=== PATIENT | male | born 1960 | race Caucasian/White ===

== ENCOUNTER 2019-11-04 15:23 | Outpatient (CLI) | payer OTHER, MEDICARE, SELFPAY ==
[2019-11-04 15:49] LABS: Basophils Percent Auto 0.1 % (0.2-1.2); Eosinophils Absolute Auto 0.4 K/mm3 (0-0.3); Eosinophils Percent Auto 3.5 % (0-4.4); Hematocrit 29.6 % (42.0-52.0); Immature Granulocyte Absolute 0.06 K/mm3 (0.00-0.031); Immature Granulocyte Percent A 0.6 % (0-0.5); Lymphocytes Absolute Auto 0.91 K/mm3 (0.9-3.2); Lymphocytes Percent Auto 8.9 % (18.3-44.2); Mean Corpuscular HGB Conc 30.4 g/dl (32-36); Mean Corpuscular Volume 105.3 fl (80-100); Mean Platelet Volume 10.8 fl (7.4-10.4); Monocytes Absolute Auto 0.9 K/mm3 (0.1-0.6); Monocytes Percent Auto 8.7 % (2.6-8.5); Neutrophils Percent Auto 78.2 % (45.5-73.1); Platelet Count Result 181 k/mm3 (150-375); Red Blood Count 2.81 M/mm3 (4.6-6.20); Red Cell Distribution Width 14.6 % (11.5-14.5); White Blood Count 10.2 K/mm3 (4.5-10.0)
[2019-11-04 17:43] LABS: Iron 76 ug/dL (49-181)
[2019-11-04 18:08] LABS: Percent Iron Saturation 27 % (20-50)
[2019-11-04 18:24] LABS: Alanine Aminotransferase 19 U/L (4-50); Albumin Level 3.1 g/dL (3.5-5.1); Alkaline Phosphatase 220 U/L (38-126); Anion Gap 14 mmol/L (8-16); Aspartate Amino Transferase 27 U/L (17-59); Bilirubin,Total 0.2 mg/dL (0.2-1.3); Blood Urea Nitrogen 73 mg/dL (9-20); Calcium 8.3 mg/dL (8.4-10.2); Carbon Dioxide 26 mmol/L (22-30); Chloride 99 mmol/L (98-107); Estimated Glomerular Filt Rate 6; Glucose 146 mg/dL (75-110); Lactate Dehydrogenase 533 U/L (313-618); Potassium 5.7 mmol/L (3.4-5.0); Sodium 139 mmol/L (137-145)
[2019-11-06 21:46] LABS: Erythropoietin (EPO) 108.3 mIU/mL (2.6-18.5)
== END 2019-11-04 15:24 | disposition home or self-care (01) ==
PROVIDERS: PCP Internal Medicine Nephrology; Visit Provider Internal Medicine Hematology & Oncology
DX: D64.9 Anemia, unspecified (principal)
CPT/HCPCS: 36415; 80053; 82607; 82668; 82728; 83540; 83550; 83615; 85025

== ENCOUNTER 2019-11-29 18:24 | Emergency (ER) | payer OTHER, MEDICARE, SELFPAY ==
[2019-11-29] VITALS (9 sets, daily range): BP systolic 66–110; BP diastolic 34–53; PULSE 85–96; RESP 18–91; TEMP 37.3; O2SAT 88–100
--- NOTE | ~2019-11-29 | XR_ITS ---
XR chest 1V portable DATE: 11/29/2019 19:07 INDICATION: Medial chest pain. Shortness of breath. Hypertension. TECHNIQUE: Portable AP chest on 11/29/2019 at 1853 hours COMPARISON: 08/10/2013 portable AP chest FINDINGS: Limited portable examination with low lung volumes. Right mid and lower lung infiltrate and/atelectasis and left lower lung infiltrate or atelectasis. No pleural effusion or pulmonary vascular congestion or pneumothorax is evident. Cardiomegaly. Left-sided chest transvenous pacemaker device with leads overlying right atrium and rig ht ventricle. Diffuse osteopenia. IMPRESSION: Bilateral infiltrates and/atelectasis. Cardiomegaly; left-sided dual-lead pacemaker Reviewed, dictated and finalized at location A. IMPRESSION: Bilateral infiltrates and/atelectasis. Cardiomegaly; left-sided yair l-lead pacemaker
--- NOTE | 2019-11-29 18:37 | ECG_ITS ---
Measurements Intervals [place] Rate: 93 P: -72 SD: 96 QRS: -49 QRSD: 224 T: 145 QT: 530 QTc: 660 Interpretive Statements ATRIAL SENSE- ELECTRONIC VENTRICULAR PACEMAKER BASELINE WANDER- I, II, AVR, AVL, AVF, V1-V2, V5 NO FURTHER INTERPRETATION IS POSSIBLE ATYPICAL ECG Electronically Signed On 11-30-2019 8:19:04 CDT by Adal Kate D.O.
[2019-11-29 19:11] LABS: Basophils Percent Auto 0.2 % (0.2-1.2); Eosinophils Percent Auto 0.1 % (0-4.4); Hematocrit 29.5 % (42.0-52.0); Hemoglobin 9.2 g/dL (14.0-18.0); Immature Granulocyte Absolute 0.14 K/mm3 (0.00-0.031); Immature Granulocyte Percent A 0.7 % (0-0.5); Lymphocytes Absolute Auto 0.12 K/mm3 (0.9-3.2); Lymphocytes Percent Auto 0.6 % (18.3-44.2); Mean Corpuscular HGB Conc 31.2 g/dl (32-36); Mean Corpuscular Hemoglobin 32.1 pg (26-34); Mean Corpuscular Volume 102.8 fl (80-100); Mean Platelet Volume 11.5 fl (7.4-10.4); Monocytes Absolute Auto 0.9 K/mm3 (0.1-0.6); Monocytes Percent Auto 4.7 % (2.6-8.5); Neutrophils Absolute Auto 18.6 K/mm3 (1.3-6.7); Neutrophils Percent Auto 93.7 % (45.5-73.1); Platelet Count Result 209 k/mm3 (150-375); Red Blood Count 2.87 M/mm3 (4.6-6.20); Red Cell Distribution Width 14.7 % (11.5-14.5); White Blood Count 19.8 K/mm3 (4.5-10.0)
[2019-11-29 19:18] LABS: Lactic Acid Reflex 2.5 mmol/L (0.7-2.1)
[2019-11-29 19:19] LABS: Alanine Aminotransferase 21 U/L (4-50); Albumin Level 2.7 g/dL (3.5-5.1); Alkaline Phosphatase 120 U/L (38-126); Anion Gap 18 mmol/L (8-16); Aspartate Amino Transferase 30 U/L (17-59); Bilirubin,Total 0.5 mg/dL (0.2-1.3); Blood Urea Nitrogen 64 mg/dL (9-20); Calcium 7.5 mg/dL (8.4-10.2); Carbon Dioxide 22 mmol/L (22-30); Chloride 99 mmol/L (98-107); Estimated CRCL calculation 8 ml/min; Estimated Glomerular Filt Rate 5; Glucose 191 mg/dL (75-110); Potassium 3.7 mmol/L (3.4-5.0); Sodium 139 mmol/L (137-145)
[2019-11-29 19:20] LABS: INR 1.4; Prothrombin Time 16.8 Seconds (11.1-14.7)
[2019-11-29 19:34] LABS: NT Pro B Type Natriuretic Pept > 35000 PG/ML (5-100)
[2019-11-29] MEDS: SODIUM CHLORIDE 0.9% IV 1,000 ML 1000 ML (19:51)
--- NOTE | 2019-11-29 20:04 | PC.NURSE ---
bipap / 12- 40 %
--- NOTE | 2019-11-29 20:24 | PC.NURSE ---
erp @ bedside for central line for the right ij
[2019-11-29] MEDS: NOREPINEPHRINE 8 MG/D5W 250 ML 8 MG/250 ML BAG 9.4 MG IV CONT (21:15)
[2019-11-29 22:04] LABS: Reflex Lactic Acid Yes or No Add Lactic
[2019-11-29 22:09] LABS: Alveolar/Arterial O2 Gradient 123.3 mmHg; Base Excess ABG -5.5 mEq/l (+/-2.0); Fractional Inspired Oxygen 36 %; HCO3 ABG 19.8 mEq/l (22.0-26.0); Oxygen Content ABG 13.2 %vol (16.0-22.0); Oxygen Saturation ABG 96.4 % (95.0-100.0); Oxyhemoglobin 93.6 % THb (90.0-100.0); PCO2 ABG 37.7 mmHg (35.0-45.0); PO2 ABG 89.7 mmHg (80.0-100.0); PO2 FiO2 Ratio Arterial Blood 2.49 %; Total Hemoglobin 9.9 g/dL (12.0-18.0); pH ABG 7.338 (7.350-7.450)
[2019-11-29 22:11] LABS: Device NASAL CANNULA
[2019-11-29] MEDS: ONDANSETRON INJ 4 MG/2 ML VIAL IV PUSH (22:34)
--- NOTE | 2019-11-29 22:36 | PM.IMCN ---
Assessment and Plan Assessment and plan (1) Cardiogenic shock: Code(s): R57.0 - Cardiogenic shock Status: Acute Assessment and Plan: the patient had a right femoral line placed per 1 of the ER physicians. The patient is now on Levophed. The patient's blood pressures have stabilized. He continues to have chest pain Intermittently. The patient's troponin has dropped from 7 up to 15. The ER physician contacted The cardiology service at [facility] for a 2nd time. Given the patient's cardiogenic shock the patient will be transferred to [facility] ER for further evaluation by interventional cardiology. The patient has been initiated on heparin drip. (2) Non-ST elevated myocardial infarction (non-STEMI): Code(s): I21.4 - Non-ST elevation (NSTEMI) myocardial infarction Status: Acute (3) End-stage renal disease on peritoneal dialysis: Code(s): N18.6 - End stage renal disease; Z99.2 - Dependence on renal dialysis Status: Acute Assessment and Plan: The patient is now being transferred [facility]. He was initially going to be admitted to our facility as he was not initially stable for transfer and [facility] was reporting difficulty but bed placement. (4) AV fistula infection: Qualifiers: Encounter type: initial encounter Qualified Code(s): T82.7XXA - Infection and inflammatory reaction due to other cardiac and vascular devices, implants and grafts, initial encounter Code(s): T82.7XXA - Infection and inflammatory reaction due to other cardiac and vascular devices, implants and grafts, initial encounter Status: Acute Assessment and Plan: supposed to be removed later this month at [facility]. (5) Diarrhea: Qualifiers: Diarrhea type: presumed infectious Qualified Code(s): R19.7 - Diarrhea, unspecified Code(s): R19.7 - Diarrhea, unspecified Status: Acute Assessment and Plan: C diff cannot completely be ruled out Given the patient's recent oral vancomycin therapy at home. (6) Sepsis: Qualifiers: Sepsis type: sepsis due to unspecified organism Sepsis acute organ dysfunction status: with acute organ dysfunction Severe sepsis acute organ dysfunction type: acute respiratory failure Acute respiratory failure type: with hypoxia Severe sepsis shock status: with septic shock Qualified Code(s): A41.9 - Sepsis, unspecified organism; R65.21 - Severe sepsis with septic shock; J96.01 - Acute respiratory failure with hypoxia Code(s): A41.9 - Sepsis, unspecified organism Status: Acute Assessment and Plan: possible septic shock given the patient's diarrhea. The patient has had persistent diarrhea and was on oral vancomycin as outpatient until the last week or so. The patient denies a history of C diff. 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 He states that he was supposed to have the AV fistula removed later this month At [facility] [place]. He also reports generalized abdominal pain and that his abdomen is slightly more distended than at baseline. He denies any changes in his peritoneal fluid appearance. However cannot completely rule out peritonitis given the patient's symptoms on presentation. The patient was given empiric antibiotic coverage with cefepime and vanc. Blood cultures are pending. (7) Limb ischemia: Code(s): I99.8 - Other disorder of circulatory system Status: Acute Assessment and Plan: given the patient's known AV fistula infection and the marked cyanosis of the patient's left hand the patient will need further evaluation by vascular surgery which is not available at this facility. Additional Plan 45 minutes was spent in critical care activities. Due to a high probability
--- NOTE | 2019-11-29 22:48 | ED.CHESTPAIN ---
HPI - Chest Pain General Chief Complaint: Chest Pain Stated Complaint: CP Source: patient and EMS History of Present Illness HPI narrative: 58-year-old with a history of CAD, s/p pacemaker, diabetes, CKD on peritoneal dialysis here with complaints of chest pain since 10 AM. Patient states that pain is constant and mid chest area nonradiating. Also complains of shortness of breath. Patient denies any fever or chills. No history of cough. Denies any abdominal pain. MD complaint: chest pain Pertinent past history: coronary artery disease Onset (ago): hour(s) (6) Timing of current episode: constant Pain location: substernal Pain radiation: none Severity: moderate Pain scale (0-10): 6 Quality: heaviness Relieving factors: nothing Exacerbating factors: nothing Risk Factors Coronary artery disease risk factors: diabetes and hypertension Related Data Home Medications Medication Instructions Recorded Confirmed aspirin [Aspir-81] 81 mg PO DAILY 11/29/19 atorvastatin 10 mg PO DAILY 11/29/19 calcitriol 0.25 mcg PO 3XW 11/29/19 carvedilol 6.25 mg PO BID 11/29/19 clopidogrel [Plavix] 75 mg PO DAILY 11/29/19 ergocalciferol (vitamin D2) 1,250 mcg PO WEEKLY 11/29/19 [Vitamin D2] escitalopram oxalate 20 mg PO DAILY 11/29/19 insulin glargine [Lantus Solostar 20 unit SUBCUT BID 11/29/19 U-100 Insulin] omeprazole 20 mg PO DAILY 11/29/19 sevelamer HCl 800 mg PO TID 11/29/19 tamsulosin 0.4 mg PO DAILY 11/29/19 Allergies Allergy/AdvReac Type Severity Reaction Status Date / Time Sulfa (Sulfonamide Allergy Mild Nausea Verified 08/10/13 09:52 Antibiotics) Review of Systems Review of Systems: All systems reviewed & are unremarkable except as noted in HPI and below Constitutional: Constitutional: Reports no additional constitutional complaints Eyes: Eyes: Reports no additional eye complaints ENT: Reports system reviewed and no additional complaints, except as documented Cardiovascular: Cardiovascular: Reports no additional cardiovascular complaints Respiratory: Respiratory: Reports no additional respiratory complaints Gastrointestinal: Gastrointestinal: Reports no additional gastrointestinal complaints Musculoskeletal: Musculoskeletal: Reports no additional musculoskeletal complaints Integumentary/Breasts: Skin/Breast: Reports system reviewed and no additional complaints, except as docu Neurologic: Reports system reviewed and no additional complaints, except as documented PMFSH Social History Social History Smoking status: Never smoker Alcohol intake: never Exam Narrative: Exam Narrative: GENERAL:ill-appearing, well-nourished, and in moderate distress sec to breathing HEAD: Normocephalic, atraumatic. EYES: PERRLA and EOMI. ENT: Nares clear, no rhinorrhea or epistaxis. Mucous membranes moist. NECK: Supple. CHEST: Bilateral crackles HEART: Regular rate and rhythm. No murmur heard. Normal peripheral pulses. ABDOMEN: Soft, nontender, nondistended, normal active bowel sounds.PD cath EXTREMITIES: Normal range of motion. No edema. SKIN: Warm, dry, no rash. NEURO: No focal deficits. Alert and oriented x3. PSYCH: Normal mood and affect. Course Vital Signs Vital signs: Vital Signs Temperature 37.3 C 11/29/19 18:28 Pulse Rate 93 11/29/19 18:28 Respiratory Rate 20 11/29/19 18:28 Blood Pressure 77/50 L 11/29/19 18:28 Pulse Oximetry 100 11/29/19 18:28 Temperature 37.3 C 11/29/19 18:28 Pulse Rate 88 11/29/19 21:19 Respiratory Rate 24 H 11/29/19 21:19 Blood Pressure 93/42 L 11/29/19 21:19 Pulse Oximetry 92 11/29/19 21:19 Procedures Central Line Placement Right Femoral: Discussed w/ the patient/family/POA,the placement of a central venous catheter, including its clinical necessity/indication & associated potential risks, benifits and alternatives.: Yes The patient/family/POA understand(s) and a
--- NOTE | 2019-11-29 22:54 | PC.NURSE ---
called [facility] to request transport to [facility] ER. Waiting for return call.
--- NOTE | 2019-11-29 22:55 | PC.NURSE ---
called [facility] to request transport ETA midnight
[2019-11-29] MEDS: HEPARIN SOD/D5W 100 UNITS/ML 25,000 UNITS/250 ML BAG 9 UNITS IV CONT (23:04)
[2019-11-29] MEDS: HEPARIN SODIUM 5,000 UNITS/ML VIAL 4000 UNITS IV PUSH (23:04)
[2019-11-29 23:13] LABS: Partial Thromboplastin Time 33.4 SECONDS (22.3-36.8)
--- NOTE | 2019-12-18 03:43 | PC.NURSE ---
LATE ENTRY This note is being entered to document information to the patient's record. The following information was omitted on [11/29/19], by mckenna ramon 18ml infused pt departed @ 0110 by nemesio[].
--- NOTE | 2019-12-18 03:48 | PC.NURSE ---
norepinephrine drip amout infused 16 mg prior to pt depart by [facility]
== END 2019-11-30 01:11 | disposition short-term general hospital (02) ==
PROVIDERS: Internal Medicine; Emergency Provider Family Medicine; PCP Internal Medicine
DX: R57.0 Cardiogenic shock (principal); I21.4 Non-ST elevation (NSTEMI) myocardial infarction; T82.7XXA Infection and inflammatory reaction due to other cardiac and vascular devices, implants and grafts, initial encounter; A41.9 Sepsis, unspecified organism; R65.21 Severe sepsis with septic shock; J96.01 Acute respiratory failure with hypoxia; I99.8 Other disorder of circulatory system; I25.10 Atherosclerotic heart disease of native coronary artery without angina pectoris; R19.7 Diarrhea, unspecified; I12.0 Hypertensive chronic kidney disease with stage 5 chronic kidney disease or end stage renal disease; N18.6 End stage renal disease; Z79.4 Long term (current) use of insulin; Z95.0 Presence of cardiac pacemaker; R06.02 Shortness of breath
CPT/HCPCS: 36415; 36556; 36600; 71045; 80053; 82805; 83605; 83880; 84484; 85025; 85610; 85730; 87040; 87186; 93005; 94002; 96361; 96365; 96366; 96368; 96375; 99285; C1751; J1644; J2405; J7030; J7060